=== PATIENT | female | born 1955 | race Caucasian/White ===

== ENCOUNTER 2018-09-26 05:17 | Emergency (ER) | payer MEDICARE, MEDICAID ==
[2018-09-26 05:31] VITALS: TEMP 97
[2018-09-26 06:08] LABS: BASOPHILS % (AUTO) 2 % (0-3); EOSINOPHILS % (AUTO) 1 % (0-9); HEMATOCRIT 43 % (35-47); HEMOGLOBIN 14.4 gm/dl (12.0-15.5); LYMPHOCYTES % (AUTO) 24.2 % (10-50); MEAN CORPUSCULAR HEMOGLOBIN 33.1 pg (27.0-32.0); MEAN CORPUSCULAR HGB CONC 33.6 gm/dl (32.0-36.0); MONOCYTES % (AUTO) 8.3 % (0-12); NEUTROPHILS % (AUTO) 64.7 % (37-80)
[2018-09-26 06:12] LABS: MEAN CORPUSCULAR VOLUME 99 fL (81-99)
[2018-09-26 06:17] LABS: CALCIUM 8.9 mg/dl (8.5-10.1); CARBON DIOXIDE 26.8 mEq/L (21-32); CREATININE 1.14 mg/dl (0.60-1.00); POTASSIUM 4.1 mMol/L (3.5-5.1)
[2018-09-26 06:31] LABS: INR 0.99 (0.86-1.12)
[2018-09-26 08:05] VITALS: RESP 18; O2SAT 99
[2018-09-26 08:06] VITALS: BP 134/76; PULSE 50
== END 2018-09-26 07:50 | disposition home or self-care (01) | DRG 914 ==
LOC: ED 05:17
DX: S09.90XA Unspecified injury of head, initial encounter (principal); W18.11XA Fall from or off toilet without subsequent striking against object, initial encounter; R40.2362 Coma scale, best motor response, obeys commands, at arrival to emergency department; R40.2142 Coma scale, eyes open, spontaneous, at arrival to emergency department; R40.2252 Coma scale, best verbal response, oriented, at arrival to emergency department; Q90.9 Down syndrome, unspecified
CPT/HCPCS: 36415; 70450; 71045; 80048; 85025; 85610; 99283; 99284; G0390

== ENCOUNTER 2018-11-22 17:09 | Emergency (ER) | payer MEDICARE, MEDICAID ==
[2018-11-22 17:54] VITALS: BP 126/62; PULSE 52; RESP 16; TEMP 97.6; O2SAT 93
== END 2018-11-22 18:10 | disposition home or self-care (01) | DRG 605 ==
LOC: ED 17:09
DX: S00.83XA Contusion of other part of head, initial encounter (principal); E03.9 Hypothyroidism, unspecified; F79 Unspecified intellectual disabilities
CPT/HCPCS: 99282

== ENCOUNTER 2019-01-09 20:52 | Emergency (ER) | payer MEDICARE, MEDICAID ==
[2019-01-09] MEDS ORDERED: KETOROLAC TROMETHAMINE 30 MG/ML SOL IV ONE (21:18)
[2019-01-09] MEDS ORDERED: SODIUM CHLORIDE 0.9% 1000ML 1,000 ML IV ONE (21:18)
[2019-01-09 22:04] LABS: HEMATOCRIT 39 % (35-47); HEMOGLOBIN 12.7 gm/dl (12.0-15.5); MEAN CORPUSCULAR HGB CONC 32.2 gm/dl (32.0-36.0)
[2019-01-09 22:06] LABS: MEAN CORPUSCULAR VOLUME 99 fL (81-99)
[2019-01-09 22:11] LABS: ALBUMIN 2.7 gm/dl (3.4-5.0); BILIRUBIN,TOTAL 0.3 mg/dl (0.2-1.0); CALCIUM 8.6 mg/dl (8.5-10.1); CREATININE 0.99 mg/dl (0.60-1.00); CRP INFLAMMATORY 14.74 mg/dl (0.00-0.33); POTASSIUM 4.4 mMol/L (3.5-5.1); TOTAL PROTEIN 7.4 gm/dl (6.4-8.2)
[2019-01-09] MEDS ORDERED: KETOROLAC TROMETHAMINE 30 MG/ML SOL ONE (22:14)
[2019-01-09 22:26] LABS: ANISOCYTOSIS SLIGHT AMT; BAND NEUTROPHILS % (MANUAL) 7 %; BASOPHILS % (MANUAL) 0 % (0-3); EOSINOPHILS % (MANUAL) 0 % (0-9); LYMPHOCYTES % (MANUAL) 12 % (10-50); MONOCYTES % (MANUAL) 5 % (0-12); NEUTROPHILS % (MANUAL) 76 % (37-80)
[2019-01-09] MEDS ORDERED: LEVOFLOXACIN 25 MG/ML 500 MG in SODIUM CHLORIDE 0.9% 100 ML 100 ML IV ONE (23:02)
[2019-01-09] MEDS ORDERED: LEVOFLOXACIN 25 MG/ML SOL IV ONE (23:11)
[2019-01-10 00:01] VITALS: RESP 18
[2019-01-10 00:34] VITALS: BP 105/54; PULSE 86; TEMP 98.9; O2SAT 95
[2019-01-10] MEDS ORDERED: ACETAMINOPHEN 500 MG 500 MG TAB PO ONE (00:35)
[2019-01-10] MEDS ORDERED: ACETAMINOPHEN 500 MG 500 MG TAB ONE (00:36)
== END 2019-01-10 00:40 | disposition home or self-care (01) | DRG 195 ==
LOC: ED 20:52
DX: J18.1 Lobar pneumonia, unspecified organism (principal)
CPT/HCPCS: 74176; 80053; 85007; 85027; 85651; 96365; 96366; 96374; 99070; 99283; 99285; J1885; J1956